=== PATIENT | male | born 1955 | race Caucasian/White ===

== ENCOUNTER → 2016-11-17 | Outpatient (CLI) | payer MEDICARE ==
[~2016-11-17] MED LIST: APRE30TA2; CALMOSEPTINE OINTMENT 3.5 G PACKET TOP ONE; CLIN-89 PO; GABA600T PO; GLIP1TAB6; PIOG45TA PO; THIO50CA
== END ==
LOC: NWCC 13:24
PROVIDERS: ATTEND Internal Medicine
DX: E11.621 Type 2 diabetes mellitus with foot ulcer (principal); L97.522 Non-pressure chronic ulcer of other part of left foot with fat layer exposed; S90.425A Blister (nonthermal), left lesser toe(s), initial encounter; Z87.898 Personal history of other specified conditions; Z83.3 Family history of diabetes mellitus; B35.1 Tinea unguium; E11.40 Type 2 diabetes mellitus with diabetic neuropathy, unspecified; E11.65 Type 2 diabetes mellitus with hyperglycemia; B95.7 Other staphylococcus as the cause of diseases classified elsewhere
CPT/HCPCS: 11042; 87070; 87075; 87147; 87186; 87205; A6209; A6210; A6212; A9270; G0463

== ENCOUNTER → 2016-11-21 | Outpatient (CLI) | payer MEDICARE ==
[~2016-11-21] MED LIST changes: -CALMOSEPTINE OINTMENT 3.5 G PACKET TOP ONE
--- NOTE | 2016-11-22 09:05 | DI ---
Indication: ITS.REASON: M25.561 PAIN IN RIGHT KNEE PROCEDURE: KNEE RIGHT 3 VIEWS: Encounter: Initial Comparison: None Findings: There is no acute fracture, dislocation or malalignment identified. Mild patellofemoral compartment joint space narrowing. Mild medial compartment joint space loss. Impression: Mild osteoarthritis. .
--- NOTE | 2016-11-22 09:07 | DI ---
Indication: ITS.REASON: M25.562 PAIN IN LEFT KNEE PROCEDURE: KNEE LEFT 3 VIEWS: Encounter: Initial Comparison: None Findings: There is no acute fracture, dislocation or malalignment identified. Mild patellofemoral compartment joint space loss with osteophytes. Impression: No acute osseous abnormality. .
== END ==
LOC: IMA 16:44
PROVIDERS: ATTEND Nurse Practitioner Family
DX: M17.11 Unilateral primary osteoarthritis, right knee (principal); M25.562 Pain in left knee; M25.561 Pain in right knee

== ENCOUNTER → 2016-11-21 | Outpatient (CLI) | payer MEDICARE ==
[~2016-11-21] MED LIST changes: +GADOBUTROL 10mMol/10ml INJECTION IV ONE; +SALINE FLUSH 10ml SYRINGE ONE
[2016-11-21 17:01] LABS: BASOPHILS % (AUTO) 0.4 % (0-2); EOSINOPHILS # (AUTO) 0.2 T/MM3 (0-0.5); HCT - HEMATOCRIT 39.6 % (41-53); HGB - HEMOGLOBIN 13.2 GM/DL (13.5-17.5); IMMATURE GRANULOCYTE # (AUTO) 0.02 T/MM3 (0.00-0.03); IMMATURE GRANULOCYTE % (AUTO) 0.4 % (0.0-0.5); LYMPHOCYTES # (AUTO) 1.3 T/MM3 (1-4.8); LYMPHOCYTES % (AUTO) 26.4 % (23-45); MEAN CORPUSCULAR HGB CONC(MCHC 33.3 GM/DL (31-37); MEAN PLATELET VOLUME 8.9 UM3 (9.4-12.4); MONOCYTES # (AUTO) 0.4 T/MM3 (0-0.8); MONOCYTES % (AUTO) 6.9 % (0-9.0); NEUTROPHILS #(AUTO)-ABSOLUTE 3.2 T/MM3 (1.8-7.7); NEUTROPHILS % (AUTO) 62.9 % (33-66); RED BLOOD COUNT 4.26 M/MM3 (4.50-5.90)
[2016-11-21 17:15] LABS: ALBUMIN 4.1 G/DL (3.5-5.0); ALBUMIN/GLOBULIN RATIO 1.2 RATIO (1.1-2.2); ALKALINE PHOSPHATASE 75 U/L (38-126); ALT (SGPT) 27 U/L (21-72); ANION GAP 15 MEQ/L (5-15); AST (SGOT) 22 U/L (17-59); BUN/CREATININE RATIO 30 RATIO (6-26); C-REACTIVE PROTEIN 6.4 MG/L (0-9); CALCIUM 9.3 MG/DL (8.4-10.2); CHLORIDE 105 MEQ/L (98-107); CO2 - CARBON DIOXIDE 25 MEQ/L (22-30); CREATININE 0.9 MG/DL (0.8-1.5); GLOMERULAR FILTRATION RATE 86; GLUCOSE 245 MG/DL (75-110); POTASSIUM 4.4 MEQ/L (3.6-5); SODIUM 145 MEQ/L (134-144); TOTAL PROTEIN 7.4 G/DL (6.3-8.2)
[2016-11-21 17:22] LABS: HEMOGLOBIN A1C 7.2 % (6.1-7.9)
--- NOTE | 2016-11-22 09:01 | DI ---
Indication: ITS.REASON: E11.621 Type 2 diabetes mellitus with foot ulcer; L97.422 left second toe wound, evaluate for osteomyelitis PROCEDURE: MRI FOOT LEFT W/WO CONTRAST: Encounter: Initial Comparison: None Technique: Multiplanar multisequence MR imaging of the left foot was performed with and without contrast. Contrast: 10 mL Gadavist Findings: The area of clinical concern does not show any focal bone marrow signal intensity change to suggest osteomyelitis. There is degenerative change in the midfoot. No acute fracture identified. There is edema within the intrinsic musculature of the foot, a common finding in diabetics. The Lisfranc ligament is intact. There is some loss of fat suppression in the area of the toes, somewhat limiting the exam. There is mild subcutaneous edema diffusely. Impression: No MR evidence of osteomyelitis. .
== END ==
LOC: IMA 16:15
PROVIDERS: ATTEND Internal Medicine
DX: E11.621 Type 2 diabetes mellitus with foot ulcer (principal); L97.422 Non-pressure chronic ulcer of left heel and midfoot with fat layer exposed
CPT/HCPCS: 36415; 73720; 80053; 83036; 85025; 85652; 86140; A9585

== ENCOUNTER → 2016-11-24 | Outpatient (CLI) | payer MEDICARE ==
[~2016-11-24] MED LIST changes: -GADOBUTROL 10mMol/10ml INJECTION IV ONE; +SALINE FLUSH 10ml SYRINGE IVF ONE; -SALINE FLUSH 10ml SYRINGE ONE
== END ==
LOC: NWCC 10:25
PROVIDERS: ATTEND Internal Medicine
DX: E11.621 Type 2 diabetes mellitus with foot ulcer (principal); L97.522 Non-pressure chronic ulcer of other part of left foot with fat layer exposed; S90.425A Blister (nonthermal), left lesser toe(s), initial encounter; Z89.421 Acquired absence of other right toe(s)
CPT/HCPCS: 11042; A6021; A6210; G0463